=== PATIENT | female | born 1990 | race Two or more races ===

== ENCOUNTER 2017-07-07 14:04 | Emergency (ER) | payer BC ==
[2017-07-07 15:49] LABS: APPEARANCE,URINE CLEAR; BILIRUBIN,URINE NEGATIVE (NEGATIVE); COLOR,URINE YELLOW; GLUCOSE, URINE NEGATIVE (NEGATIVE); KETONES,URINE NEGATIVE (NEGATIVE); LEUKOCYTE ESTERASE,URINE NEGATIVE (NEGATIVE); NITRITE,URINE NEGATIVE (NEGATIVE); PROTEIN,URINE NEGATIVE (NEGATIVE); URINE SPECIFIC GRAVITY 1.025; UROBILINOGEN,URINE NEGATIVE mg/dL (<2.0)
--- NOTE | 2017-07-07 16:18 | ER Document Report ---
ED General - General Chief Complaint: Breathing Difficulty Stated Complaint: DIFFICULTY BREATHING Time Seen by Provider: 07/07/17 15:20 Mode of Arrival: Ambulatory Information source: Patient Notes: Patient presents with several different complaints. She states she has had some shortness of breath and some tightness in her chest. He states currently the tightness in her chest is gone. She also states that she has had some throat pain and feels like her tonsils are swollen. She also states she has had some upper abdominal pain. These pains have been intermittent. They have been mild to moderate. Nothing that made it better or worse. Did not radiate. No vomiting or diarrhea. No known fevers. TRAVEL OUTSIDE OF THE [place] IN LAST 30 DAYS: No - Related Data Allergies/Adverse Reactions: dog dander Allergy (Verified 07/07/17 15:11) Penicillins Allergy (Verified 07/07/17 15:11) Past Medical History - General Information source: Patient - Social History Smoking Status: Never Smoker Chew tobacco use (# tins/day): No Frequency of alcohol use: None Drug Abuse: None Family History: Reviewed & Not Pertinent Patient has suicidal ideation: No Patient has homicidal ideation: No Pulmonary Medical History: Reports: Hx Asthma Renal/ Medical History: Denies: Hx Peritoneal Dialysis Past Surgical History: Reports: Hx Tubal Ligation Review of Systems - Review of Systems Constitutional: Chills, Malaise EENT: Nose congestion, Nose discharge Cardiovascular: denies: Chest pain, Palpitations Gastrointestinal: denies: Diarrhea, Vomiting -: Yes All other systems reviewed and negative Physical Exam - Vital signs Vitals: Temp Pulse Resp BP Pulse Ox 98.5 F 86 17 108/61 98 07/07/17 14:20 07/07/17 14:20 07/07/17 14:20 07/07/17 14:20 07/07/17 14:20 Interpretation: Normal - General General appearance: Appears well, Alert - HEENT Head: Normocephalic, Atraumatic Eyes: Normal Pupils: PERRL - Respiratory Respiratory status: No respiratory distress Chest status: Nontender Breath sounds: Normal Chest palpation: Normal - Cardiovascular Rhythm: Regular Heart sounds: Normal auscultation Murmur: No - Abdominal Inspection: Normal Distension: No distension Bowel sounds: Normal Tenderness: Nontender Organomegaly: No organomegaly - Back Back: Normal, Nontender - Extremities General upper extremity: Normal inspection, Nontender, Normal color, Normal ROM , Normal temperature General lower extremity: Normal inspection, Nontender, Normal color, Normal ROM , Normal temperature, Normal weight bearing. No: Yoshi's sign - Neurological Neuro grossly intact: Yes Cognition: Normal Orientation: AAOx4 [place] Coma Scale Eye Opening: Spontaneous Wilder Coma Scale Verbal: Oriented [place] Coma Scale Motor: Obeys Commands [place] Coma Scale Total: 15 Speech: Normal Motor strength normal: LUE, RUE, LLE, RLE Sensory: Normal - Psychological Associated symptoms: Normal affect, Normal mood - Skin Skin Temperature: Warm Skin Moisture: Dry Skin Color: Normal Course - Vital Signs Vital signs: Temp Pulse Resp BP Pulse Ox 98.5 F 86 17 108/61 98 07/07/17 14:20 07/07/17 14:20 07/07/17 14:20 07/07/17 14:20 07/07/17 14:20 Discharge - Discharge Clinical Impression: Tonsillitis Condition: Stable Disposition: HOME, SELF-CARE Instructions: Tonsillitis ([facility]) Prescriptions: Cefdinir 300 mg PO BID 7 Days #14 capsule Phenylephrine HCl/Cod/Prometh [Phenergan Vc-Codeine Syrup] 5 ml PO Q6 PRN 5 Days syrup PRN Reason:
[2017-07-07 16:28] VITALS: BP 116/68
[2017-07-07] MEDS ORDERED: ALBUTEROL SULFATE HFA (90 MCG/PUFF) 8 GM MDI (1 MDI/ER DISP) IH SCH (16:30)
== END 2017-07-07 16:28 | disposition home or self-care (01) ==
LOC: ER 14:04
DX: J03.90 Acute tonsillitis, unspecified (principal); J45.909 Unspecified asthma, uncomplicated; R06.02 Shortness of breath; R10.10 Upper abdominal pain, unspecified; R68.83 Chills (without fever); R09.81 Nasal congestion; R53.81 Other malaise; Z91.048 Other nonmedicinal substance allergy status; Z88.0 Allergy status to penicillin
CPT/HCPCS: 99284; 81025; 81001; J3490

== ENCOUNTER 2017-07-28 12:11 | Emergency (ER) | payer BC ==
[2017-07-28] MEDS ORDERED: PREDNISONE 20 MG TABLET PO ONE (13:19)
[2017-07-28] MEDS ORDERED: ALBUTEROL SULFATE 0.083% NEB 2.5 MG/3 ML AMPUL NEB ONE (13:19)
[2017-07-28] MEDS ORDERED: IBUPROFEN 600 MG TABLET PO ONE (13:20)
--- NOTE | 2017-07-28 14:23 | ER Document Report ---
ED General - General Chief Complaint: Asthma Exacerbation Stated Complaint: DIFFICULTY BREATHING, CHEST PAIN Time Seen by Provider: 07/28/17 13:19 Notes: Patient presents stating that she felt short of breath. She states this is because she stayed in a hotel with dogs. She states she does have a history of asthma. She states she currently has no medications. The shortness of breath is worse with exertion and better with rest. It is mild to moderate. It is constant. She states she is not going to go back to this hotel. She is also had a dry cough. No fever TRAVEL OUTSIDE OF THE [place] IN LAST 30 DAYS: No - Related Data Allergies/Adverse Reactions: dog dander Allergy (Verified 07/28/17 12:13) Penicillins Allergy (Verified 07/28/17 12:13) Past Medical History - General Information source: Patient - Social History Smoking Status: Never Smoker Frequency of alcohol use: None Drug Abuse: None Family History: Reviewed & Not Pertinent Patient has suicidal ideation: No Patient has homicidal ideation: No Pulmonary Medical History: Reports: Hx Asthma Renal/ Medical History: Denies: Hx Peritoneal Dialysis Past Surgical History: Reports: Hx Tubal Ligation Review of Systems - Review of Systems Constitutional: denies: Chills, Fever, Recent illness Cardiovascular: denies: Chest pain, Palpitations Respiratory: Cough, Short of breath, Wheezing Gastrointestinal: denies: Abdominal pain, Diarrhea, Nausea Physical Exam - Vital signs Vitals: Temp Pulse Resp BP Pulse Ox 97.8 F 92 16 114/69 96 07/28/17 12:38 07/28/17 12:38 07/28/17 12:38 07/28/17 12:38 07/28/17 12:38 Interpretation: Normal - General General appearance: Appears well, Alert - HEENT Head: Normocephalic, Atraumatic Eyes: Normal Pupils: PERRL - Respiratory Respiratory status: No respiratory distress Chest status: Nontender Breath sounds: Wheezing Chest palpation: Normal - Cardiovascular Rhythm: Regular Heart sounds: Normal auscultation Murmur: No - Abdominal Inspection: Normal Distension: No distension Bowel sounds: Normal Tenderness: Nontender Organomegaly: No organomegaly - Back Back: Normal, Nontender - Extremities General upper extremity: Normal inspection, Nontender, Normal color, Normal ROM , Normal temperature General lower extremity: Normal inspection, Nontender, Normal color, Normal ROM , Normal temperature, Normal weight bearing. No: Yoshi's sign - Neurological Neuro grossly intact: Yes Cognition: Normal Orientation: AAOx4 [place] Coma Scale Eye Opening: Spontaneous [place] Coma Scale Verbal: Oriented [place] Coma Scale Motor: Obeys Commands [place] Coma Scale Total: 15 Speech: Normal Motor strength normal: LUE, RUE, LLE, RLE Sensory: Normal - Psychological Associated symptoms: Normal affect, Normal mood - Skin Skin Temperature: Warm Skin Moisture: Dry Skin Color: Normal Course - Re-evaluation Re-evalutation: 07/28/17 14:21 Patient states after breathing treatment and prednisone that she feels significantly better. - Vital Signs Vital signs: Temp Pulse Resp BP Pulse Ox 97.8 F 92 16 114/69 96 07/28/17 12:38 07/28/17 12:38 07/28/17 12:38 07/28/17 12:38 07/28/17 12:38 Discharge - Discharge Clinical Impression: Moderate intermittent asthma with acute exacerbation Condition: Stable Disposition: HOME, SELF-CARE Instructions: Asthma ([facility]), Inhaled Bronchodilators ([facility]) Additional Instructions: Please use her medications as instructed. Prescriptions: Albuterol Sulfate [Ventolin Hfa] 1 - 2 puff IH Q4 PRN #1 [id number].[id number] PRN Reason: Prednisone [Deltasone 20 mg Tablet] 3 tab PO DAILY 5 Days #15 tablet Forms: Return to Work
[2017-07-28 14:32] VITALS: BP 122/72
[2017-07-28] MEDS ORDERED: ALBUTEROL SULFATE HFA (90 MCG/PUFF) 8 GM MDI (1 MDI/ER DISP) IH ONE (14:32)
== END 2017-07-28 14:38 | disposition home or self-care (01) ==
LOC: ER 12:11
DX: J45.21 Mild intermittent asthma with (acute) exacerbation (principal); R06.02 Shortness of breath; R07.9 Chest pain, unspecified; R05 Cough
CPT/HCPCS: 94640; 99284; J7512; J3490

== ENCOUNTER 2017-09-04 07:57 | Emergency (ER) | payer SELFPAY ==
[2017-09-04] MEDS ORDERED: ACETAMINOPHEN WITH CODEINE 120-12 MG/5 ML UDCUP PO ONE (08:27)
[2017-09-04] MEDS ORDERED: IPRATROPIUM/ALBUTEROL 0.5-2.5 MG/3 ML AMPUL NEB ONE (08:27)
[2017-09-04] MEDS ORDERED: PREDNISONE 20 MG TABLET PO ONE (08:36)
--- NOTE | 2017-09-04 09:09 | RADIOLOGY REPORT (SQ) ---
EXAM DESCRIPTION: CHEST 2 VIEWS COMPLETED DATE/TIME: 09/04/2017 8:59 am REASON FOR STUDY: cough, left cp worse with cough, asthma COMPARISON: 12/04/2015 EXAM PARAMETERS: NUMBER OF VIEWS: two views TECHNIQUE: Digital Frontal and Lateral radiographic views of the chest acquired. RADIATION DOSE: NA LIMITATIONS: none FINDINGS: LUNGS AND PLEURA: No opacities, masses or pneumothorax. No pleural effusion. MEDIASTINUM AND HILAR STRUCTURES: No masses or contour abnormalities. HEART AND VASCULAR STRUCTURES: Heart normal size. No evidence for failure. BONES: No acute findings. HARDWARE: None in the chest. OTHER: No other significant finding. IMPRESSION: NO ACUTE RADIOGRAPHIC FINDING IN THE CHEST. TECHNICAL DOCUMENTATION: JOB ID: [id number] [employer] [facility]- All Rights Reserved Reading location - IP/workstation name: [email or web address]
--- NOTE | 2017-09-04 09:20 | ER Document Report ---
ED Respiratory Problem - General Chief Complaint: Shortness Of Breath Stated Complaint: SHORTNESS OF BREATH Time Seen by Provider: 09/04/17 08:27 Mode of Arrival: Ambulatory Information source: Patient Notes: Patient is a 27-year-old female with asthma who presents to the ER today for difficulty breathing times about 3 days. Patient ran out of her inhaler 2 days ago. Patient denies any fevers or chills, states that she has been coughing, productive cough, states that over the past day it became painful on the left side of her chest and back with coughing and deep breathing. Patient has had chest tightness and wheezing. TRAVEL OUTSIDE OF THE [place] IN LAST 30 DAYS: No - Related Data Allergies/Adverse Reactions: dog dander Allergy (Verified 07/28/17 12:13) Penicillins Allergy (Verified 07/28/17 12:13) Past Medical History - General Information source: Patient - Social History Smoking Status: Never Smoker Frequency of alcohol use: None Drug Abuse: None Family History: Reviewed & Not Pertinent Patient has suicidal ideation: No Patient has homicidal ideation: No Pulmonary Medical History: Reports: Hx Asthma Renal/ Medical History: Denies: Hx Peritoneal Dialysis Past Surgical History: Reports: Hx Tubal Ligation Review of Systems - Review of Systems Constitutional: No symptoms reported. denies: Chills, Fever EENT: See HPI Cardiovascular: No symptoms reported Respiratory: See HPI Gastrointestinal: No symptoms reported Genitourinary: No symptoms reported Female Genitourinary: No symptoms reported Musculoskeletal: No symptoms reported Skin: No symptoms reported Hematologic/Lymphatic: No symptoms reported Neurological/Psychological: No symptoms reported Physical Exam - Vital signs Vitals: Temp Pulse Resp BP Pulse Ox 97.5 F 91 18 107/61 95 09/04/17 08:03 09/04/17 08:03 09/04/17 08:03 09/04/17 08:03 09/04/17 08:03 - Notes Notes: PHYSICAL EXAMINATION: GENERAL: Mildly ill-appearing, but in no acute distress. HEAD: Atraumatic, normocephalic. EYES: Pupils equal round and reactive to light, extraocular movements intact, sclera anicteric, conjunctiva are normal. ENT: ear canals without erythema or foreign body, TMs pearly solis with good bony landmarks, nares with mucoid discharge , oropharynx erythematous without enlarged tonsils without exudates. Moist mucous membranes. maxillary and frontal sinuses tender to palpation NECK: Normal range of motion, supple without lymphadenopathy LUNGS: Cough, wheezing bilateral lower lung rubin, no rales or rhonchi. HEART: Regular rate and rhythm without murmurs EXTREMITIES: Normal range of motion, no pitting edema. No cyanosis. NEUROLOGICAL: Cranial nerves grossly intact. Normal sensory/motor exams. PSYCH: Normal mood, normal affect. SKIN: Warm, Dry, normal turgor, no rashes or lesions noted Course - Re-evaluation Re-evalutation: 09/04/17 09:15 Patient feels better after breathing treatment here, prednisone given. Patient also given cough medication. Chest x-ray negative for any acute pathology. - Vital Signs Vital signs: Temp Pulse Resp BP Pulse Ox 97.5 F 91 18 107/61 95 09/04/17 08:03 09/04/17 08:03 09/04/17 08:03 09/04/17 08:03 09/04/17 08:03 Discharge - Discharge Clinical Impression: Asthma Qualifiers: Asthma severity: unspecified severity Asthma persistence: unspecified Asthma complication type: with acute exacerbation Qualified Code(s): J45.901 - Unspecified asthma with (acute) exacerbation Sinusitis Qualifiers: Sinusitis location: maxillary Chronicity: acute Recurrence: non-recurrent Qualified Code(s): J01.00 - Acute maxillary sinusitis, unspecified Condition: Stable Disposition: HOME, SELF-CARE Instructions: Asthma ([facility]), Sinusitis ([facility]) Additional Instructions: Return immediately for any new or worsening symptoms. Follow up with primary care provider, call tomorrow to make followup appointment. Prescriptions: Hydrocodone Bit/Homatropine [Hycodan Syrup 5-1.5 mg/5 ml Ud Cup] 5 ml PO Q4HP PRN #120 ml PRN Reason: Albuterol Sulfate [Proair HFA Inhalation Aerosol 8.5 gm MDI] 2 puff IH Q4H PRN # 1 mdi PRN Reason: Azithromycin [Zithromax 250 mg Tablet] 250 mg PO ASDIR PRN #6 tablet PRN Reason: Prednisone [Deltasone 20 mg Tablet] 3 tab PO DAILY 5 Days tablet Forms: Return to Work
[2017-09-04 09:46] VITALS: BP 116/60
== END 2017-09-04 09:47 | disposition home or self-care (01) ==
LOC: ER 07:57
DX: J45.901 Unspecified asthma with (acute) exacerbation (principal); J01.00 Acute maxillary sinusitis, unspecified; Z88.0 Allergy status to penicillin; Z98.51 Tubal ligation status
CPT/HCPCS: 94640; 99284; 71046; J3490; J7512; J7620

== ENCOUNTER 2017-10-31 15:41 | Emergency (ER) | payer MEDICAID ==
[2017-10-31 15:46] VITALS: BP 109/68
--- NOTE | 2017-10-31 15:57 | ER Document Report ---
HPI - HPI Patient complains to provider of: Right lower back pain Onset: Other - 2 days Onset/Duration: Gradual Quality of pain: Achy, Pressure Pain Level: 5 Context: 27-year-old female complaining of right flank pain and right lower rib pain that radiates around to the front for 2 days. Is worse with movement. No radiculopathy. No nausea vomiting or diarrhea. No fever or chills. No shortness of breath or cough. No recent illness. No vaginal discharge. No dysuria. Associated Symptoms: None Exacerbated by: Movement Relieved by: Denies Similar symptoms previously: No Recently seen / treated by doctor: No - ROS ROS below otherwise negative: Yes Systems Reviewed and Negative: Yes All other systems reviewed and negative - REPRODUCTIVE Reproductive: DENIES: : Past Medical History - General Information source: Patient - Social History Smoking Status: Unknown if Ever Smoked Frequency of alcohol use: None Drug Abuse: None Lives with: Family Family History: Reviewed & Not Pertinent Pulmonary Medical History: Reports: Hx Asthma Renal/ Medical History: Denies: Hx Peritoneal Dialysis Past Surgical History: Reports: Hx Tubal Ligation Vertical Provider Document - CONSTITUTIONAL Agree With Documented VS: Yes Exam Limitations: No Limitations - INFECTION CONTROL TRAVEL OUTSIDE OF THE [place] IN LAST 30 DAYS: No - HEENT HEENT: Normocephalic - NECK Neck: Supple - RESPIRATORY Respiratory: Breath Sounds Normal, No Respiratory Distress - CARDIOVASCULAR Cardiovascular: Regular Rate, Regular Rhythm - GI/ABDOMEN Gastrointestinal: Abdomen Soft, Abdomen Non-Tender, No Organomegaly - BACK Back: Normal Inspection. negative: CVA Tenderness-Right Notes: tender right lumbar paraspinal muscles to the SI joint - MUSCULOSKELETAL/EXTREMETIES Musculoskeletal/Extremeties: MAEW, Tender - She is also tender in the right lower lateral ribs - NEURO Level of Consciousness: Awake Deep Tendon Reflexes: 2+ - Bilateral ankle and patellar - DERM Integumentary: No Rash Course - Re-evaluation Re-evalutation: 10/31/17 16:52 Urinalysis is negative I will treat her for musculoskeletal back pain - Vital Signs Vital signs: Temp Pulse Resp BP Pulse Ox 97.6 F 81 16 109/68 97 10/31/17 15:44 10/31/17 15:44 10/31/17 15:44 10/31/17 15:44 10/31/17 15:44 Discharge - Discharge Clinical Impression: Flank pain Low back pain Qualifiers: Chronicity: acute Back pain laterality: right Sciatica presence: without sciatica Qualified Code(s): M54.5 - Low back pain Condition: Good Disposition: HOME, SELF-CARE Instructions: Acetaminophen, Ibuprofen (General) ([facility]), Muscle Relaxers ([facility]), Muscle Strain ([facility]), Low Back Pain ([facility]) Additional Instructions: Warm compress Muscle relaxers can be taken up to 3 times a day Motrin 3 times a day Tylenol up to 4000 mg per day See your doctor for follow-up if it persists Prescriptions: Ibuprofen [Motrin 800 mg Tablet] 800 mg PO Q8HP PRN #30 tablet PRN Reason: Cyclobenzaprine HCl [Flexeril 10 Mg Tablet] 10 mg PO TIDP PRN #20 tablet PRN Reason:
[2017-10-31] MEDS ORDERED: ACETAMINOPHEN 325 MG TABLET PO ONE (16:13)
[2017-10-31] MEDS ORDERED: IBUPROFEN 800 MG TABLET PO ONE (16:13)
[2017-10-31 16:47] LABS: APPEARANCE,URINE CLOUDY; BILIRUBIN,URINE NEGATIVE (NEGATIVE); COLOR,URINE YELLOW; GLUCOSE, URINE NEGATIVE (NEGATIVE); KETONES,URINE NEGATIVE (NEGATIVE); LEUKOCYTE ESTERASE,URINE NEGATIVE (NEGATIVE); NITRITE,URINE NEGATIVE (NEGATIVE); PROTEIN,URINE NEGATIVE (NEGATIVE); URINE SPECIFIC GRAVITY 1.021; UROBILINOGEN,URINE NEGATIVE mg/dL (<2.0)
== END 2017-10-31 17:15 | disposition home or self-care (01) ==
LOC: ER 15:41
DX: M54.5 Low back pain (principal); R10.9 Unspecified abdominal pain; Z98.51 Tubal ligation status
CPT/HCPCS: 99283; 87086; 81001; J3490 ×2

== ENCOUNTER 2017-11-03 09:55 | Emergency (ER) | payer MEDICAID ==
--- NOTE | 2017-11-03 10:25 | ER Document Report ---
ED Medical Screen (RME) - General Chief Complaint: Abdominal Pain Stated Complaint: RIB PAIN Time Seen by Provider: 11/03/17 10:21 Mode of Arrival: Ambulatory Information source: Patient Notes: 27-year-old female presents with complaints of continued right upper quadrant right flank pain. Patient denies any fevers or chills admits to nausea with diarrhea. I have greeted and performed a rapid initial assessment of this patient. A comprehensive ED assessment and evaluation of the patient, analysis of test results and completion of the medical decision making process will be conducted by additional ED providers. PHYSICAL EXAMINATION: GENERAL: Well-appearing, well-nourished and in no acute distress. HEAD: Atraumatic, normocephalic. EYES: Pupils equal round extraocular movements intact, conjunctiva are normal. ENT: Nares patent NECK: Normal range of motion LUNGS: No respiratory distress Musculoskeletal: Normal range of motion NEUROLOGICAL: Normal speech, normal gait. PSYCH: Normal mood, normal affect. SKIN: Warm, Dry, normal turgor, no rashes or lesions noted. TRAVEL OUTSIDE OF THE [place] IN LAST 30 DAYS: No - Related Data Allergies/Adverse Reactions: dog dander Allergy (Verified 10/31/17 15:42) Penicillins Allergy (Verified 10/31/17 15:42) Past Medical History Pulmonary Medical History: Reports: Hx Asthma Renal/ Medical History: Denies: Hx Peritoneal Dialysis Past Surgical History: Reports: Hx Tubal Ligation Physical Exam - Vital signs Vitals: Temp Pulse Resp BP Pulse Ox 98.0 F 85 18 114/67 98 11/03/17 09:59 11/03/17 09:59 11/03/17 09:59 11/03/17 09:59 11/03/17 09:59 Course - Vital Signs Vital signs: Temp Pulse Resp BP Pulse Ox 98.0 F 85 18 114/67 98 11/03/17 09:59 11/03/17 09:59 11/03/17 09:59 11/03/17 09:59 11/03/17 09:59
[2017-11-03] MEDS ORDERED: ONDANSETRON 4 MG TAB.RAPDIS PO ONE (11:02)
[2017-11-03] MEDS ORDERED: OXYCODONE-ACETAMINOPHEN 5-325 MG TABLET PO ONE (11:02)
--- NOTE | 2017-11-03 11:03 | ER Document Report ---
ED GI/ - General Chief Complaint: Abdominal Pain Stated Complaint: RIB PAIN Time Seen by Provider: 11/03/17 10:21 Mode of Arrival: Ambulatory Information source: Patient Notes: Patient presents complaining of right upper quadrant pain and right flank pain that wraps around her back. Patient states pain started 5 days ago. Patient states that she was here recently for this complaint. Patient reports nausea and diarrhea 3 episodes. Patient denies any vomiting, urinary symptoms, cough or congestion. Patient does complain of a rash that started to show up over the past few days. TRAVEL OUTSIDE OF THE [place] IN LAST 30 DAYS: No - HPI Patient complains to provider of: Abdominal pain, Diarrhea, Flank pain. No: Vomiting Onset: Other - 5 days Timing/Duration: Persistent Quality of pain: Achy Pain Level: 4 Location: RUQ, Right flank Vaginal bleeding (Compared to normal period): None Associated symptoms: Diarrhea, Nausea. denies: Dysuria, Fever, Urinary hesitancy, Urinary frequency, Urinary retention, Urinary urgency, Vaginal discharge, Vomiting Exacerbated by: Denies Relieved by: Denies Similar symptoms previously: No Recently seen / treated by doctor: Yes - Related Data Allergies/Adverse Reactions: dog dander Allergy (Verified 10/31/17 15:42) Penicillins Allergy (Verified 10/31/17 15:42) Past Medical History - General Information source: Patient - Social History Smoking Status: Never Smoker Chew tobacco use (# tins/day): No Frequency of alcohol use: Occasional Drug Abuse: None Occupation: None Family History: Reviewed & Not Pertinent Patient has suicidal ideation: No Patient has homicidal ideation: No Pulmonary Medical History: Reports: Hx Asthma Renal/ Medical History: Denies: Hx Peritoneal Dialysis Past Surgical History: Reports: Hx Tubal Ligation Review of Systems - Review of Systems Constitutional: No symptoms reported. denies: Fever EENT: No symptoms reported Cardiovascular: No symptoms reported. denies: Chest pain Respiratory: No symptoms reported. denies: Cough, Short of breath Gastrointestinal: Abdominal pain, Diarrhea, Nausea. denies: Vomiting Genitourinary: Flank pain. denies: Dysuria Female Genitourinary: No symptoms reported Musculoskeletal: Back pain Skin: Rash Hematologic/Lymphatic: No symptoms reported Neurological/Psychological: No symptoms reported. denies: Headaches Physical Exam - Vital signs Vitals: Temp Pulse Resp BP Pulse Ox 98.0 F 85 18 114/67 98 11/03/17 09:59 11/03/17 09:59 11/03/17 09:59 11/03/17 09:59 11/03/17 09:59 - General General appearance: Appears well, Alert In distress: None - HEENT Head: Normocephalic, Atraumatic Eyes: Normal Conjunctiva: Normal Sinus: Normal Nasal: Normal Mouth/Lips: Normal Neck: Normal, Supple. No: Lymphadenopathy - Respiratory Respiratory status: No respiratory distress Chest status: Nontender Breath sounds: Normal. No: Rales, Rhonchi, Stridor, Wheezing Chest palpation: Normal - Cardiovascular Rhythm: Regular Heart sounds: S1 appreciated, S2 appreciated Murmur: No - Abdominal Inspection: Obese Distension: No distension Bowel sounds: Normal Tenderness: Tender - RUQ - Back Back: Tender - right lat side pain. No: CVA tenderness - Extremities General upper extremity: Normal inspection, Normal ROM General lower extremity: Normal inspection, Normal ROM - Neurological Neuro grossly intact: Yes Cognition: Normal [place] Coma Scale Eye Opening: Spontaneous [place] Coma Scale Verbal: Oriented [place] Coma Scale Motor: Obeys Commands [place] Coma Scale Total: 15 - Psychological Associated symptoms: Normal affect, Normal mood - Skin Skin Temperature: Warm Skin Moisture: Dry Skin Color: Normal Course - Re-evaluation Re-evalutation: 11/03/17 12:41 On reexam patient continues with right side and right flank pain. Patient skin exposed, patient with scattered erythematous maculopapular lesions worrisome for shingles. Patient without any findings concerning for cholecystitis. No concern for UTI, Nicola or obstructive uropathy. Patient nontoxic in appearance. Will treat for likely shingles outbreak at this time. - Vital Signs Vital signs: Temp Pulse Resp BP Pulse Ox 97.8 F 80 16 110/66 100 11/03/17 12:56 11/03/17 12:56 11/03/17 12:56 11/03/17 12:56 11/03/17 12:56 - Laboratory Result Diagrams: 11/03/17 10:45 11/03/17 10:45 Laboratory results interpreted by me: 11/03/17 11/03/17 10:45 10:45 MCH 25.9 L Total Protein 6.2 L Labs- Entire Visit 11/03/17 11/03/17 11/03/17 10:45 10:45 10:45 WBC 7.6 RBC 5.06 Hgb 13.1 Hct 40.3 MCV 80 MCH 25.9 L MCHC 32.5 RDW 13.3 Plt Count 315 Seg Neutrophils % 55.8 Lymphocytes % 35.9 Monocytes % 6.7 Eosinophils % 1.2 Basophils % 0.4 Absolute Neutrophils 4.2 Absolute Lymphocytes 2.7 Absolute Monocytes 0.5 Absolute Eosinophils 0.1 Absolute Basophils 0.0 Sodium 142.8 Potassium 4.2 Chloride 105 Carbon Dioxide 29 Anion Gap 9 BUN 14 Creatinine 0.61 Est GFR ( Amer) > 60 Est GFR (Non-Af Amer) > 60 Glucose 98 Calcium 9.1 Total Bilirubin 0.3 Direct Bilirubin 0.3 Neonat Total Bilirubin Not Reportable Neonat Direct Bilirubin Not Reportable Neonat Indirect Bili Not Reportable AST 14 ALT 21 Alkaline Phosphatase 51 Total Protein 6.2 L Albumin 3.6 Lipase 107.6 Urine Color YELLOW Urine Appearance CLEAR Urine pH 8.0 Ur Specific West 1.016 Urine Protein NEGATIVE Urine Glucose (UA) NEGATIVE Urine Ketones NEGATIVE Urine Blood NEGATIVE Urine Nitrite NEGATIVE Urine Bilirubin NEGATIVE Urine Urobilinogen NEGATIVE Ur Leukocyte Esterase NEGATIVE Urine WBC (Auto) 1 Urine RBC (Auto) 2 Squamous Epi Cells Auto 4 Urine Mucus (Auto) RARE Urine Ascorbic Acid NEGATIVE Urine HCG, Qual NEGATIVE - Diagnostic Test Radiology reviewed: Reports reviewed Discharge - Discharge Clinical Impression: Right sided abdominal pain, Flank pain Herpes zoster Qualifiers: Herpes zoster complications: without complications Qualified Code(s): B02.9 - Zoster without complications Diarrhea Qualifiers: Diarrhea type: unspecified type Qualified Code(s): R19.7 - Diarrhea, unspecified Condition: Stable Disposition: HOME, SELF-CARE Instructions: Abdominal Pain ([facility]), Diarrhea, Nonspecific ([facility]), Oral Narcotic Medication ([facility]), Shingles ([facility]) Additional Instructions: Return immediately for any new or worsening symptoms Followup with your primary care provider, call tomorrow to make a followup appointment Prescriptions: Ondansetron HCl [Zofran 4 mg Tablet] 1 - 2 tab PO Q6 PRN #15 tablet PRN Reason: Oxycodone HCl/Acetaminophen [Percocet 5-325 mg Tablet] 1 tab PO ASDIR PRN #15 tablet PRN Reason: Valacyclovir HCl [Valacyclovir] 1,000 mg PO TID #21 tablet Referrals: [facility] [Provider Group] - Follow up as needed [facility] [Provider Group] - Follow up as needed
[2017-11-03 11:07] LABS: ABSOLUTE EOSINOPHILS # (AUTO) 0.1 10^3/uL (0.0-0.6); ABSOLUTE LYMPHOCYTES (AUTO) 2.7 10^3/uL (0.5-4.7); ABSOLUTE MONOCYTES (AUTO) 0.5 10^3/uL (0.1-1.4); ABSOLUTE NEUT (AUTO) 4.2 10^3/uL (1.7-8.2); BASOPHILS % (AUTO) 0.4 % (0-2); EOSINOPHILS % (AUTO) 1.2 % (0-6); HEMATOCRIT 40.3 % (36.0-47.0); HEMOGLOBIN 13.1 g/dL (12.0-15.5); LYMPHOCYTES % (AUTO) 35.9 % (13-45); MEAN CORPUSCULAR HEMOGLOBIN 25.9 pg (27.0-33.4); MEAN CORPUSCULAR HGB CONC 32.5 g/dL (32.0-36.0); MEAN CORPUSCULAR VOLUME 80 fl (80-97); MONOCYTES % (AUTO) 6.7 % (3-13); PLATELET COUNT 315 10^3/uL (150-450); RED BLOOD COUNT 5.06 10^6/uL (3.72-5.28); RED CELL DISTRIBUTION WIDTH 13.3 % (11.5-14.0); SEGMENTED NEUTROPHILS % (AUTO) 55.8 % (42-78); TOTAL CELLS COUNTED % (AUTO) 100 %; WHITE BLOOD COUNT 7.6 10^3/uL (4.0-10.5)
[2017-11-03 11:12] LABS: APPEARANCE,URINE CLEAR; BILIRUBIN,URINE NEGATIVE (NEGATIVE); COLOR,URINE YELLOW; GLUCOSE, URINE NEGATIVE (NEGATIVE); KETONES,URINE NEGATIVE (NEGATIVE); LEUKOCYTE ESTERASE,URINE NEGATIVE (NEGATIVE); NITRITE,URINE NEGATIVE (NEGATIVE); PROTEIN,URINE NEGATIVE (NEGATIVE); URINE SPECIFIC GRAVITY 1.016; UROBILINOGEN,URINE NEGATIVE mg/dL (<2.0)
[2017-11-03 11:25] LABS: ALANINE AMINOTRANSFERASE 21 U/L (9-52); ALBUMIN 3.6 g/dL (3.5-5.0); ALKALINE PHOSPHATASE 51 U/L (38-126); ANION GAP 9 (5-19); ASPARTATE AMINO TRANSFERASE 14 U/L (14-36); BILIRUBIN,DIRECT 0.3 mg/dL (0.0-0.4); BILIRUBIN,TOTAL 0.3 mg/dL (0.2-1.3); BLOOD UREA NITROGEN 14 mg/dL (7-20); CALCIUM 9.1 mg/dL (8.4-10.2); CARBON DIOXIDE 29 mmol/L (22-30); CHLORIDE 105 mmol/L (98-107); GLUCOSE 98 mg/dL (75-110); LIPASE 107.6 U/L (23-300); POTASSIUM 4.2 mmol/L (3.6-5.0); SODIUM 142.8 mmol/L (137-145); TOTAL PROTEIN 6.2 g/dL (6.3-8.2)
--- NOTE | 2017-11-03 12:01 | RADIOLOGY REPORT (SQ) ---
EXAM DESCRIPTION: U/S ABDOMEN LIMITED W/O DOP COMPLETED DATE/TIME: 11/03/2017 11:52 am REASON FOR STUDY: RUQ pain COMPARISON: None. TECHNIQUE: Dynamic and static grayscale images acquired of the abdomen and recorded on PACS. Additio nal selected color Doppler and spectral images recorded. LIMITATIONS: None. FINDINGS: PANCREAS: The tail of the pancreas is obscured by overlying bowel gas. Visualized pancrea tic duct normal caliber. LIVER: The liver measures 17.4 cm, normal size. Echotexture normal. LIVER VASCULATURE: Normal directional flow of the main portal vein and hepatic veins. GALLBLADDER: No stones. Gallbladder wall measures 2.0 mm, normal wall thickness. No pericholecystic fluid. ULTRASOUND-DETECTED PEREIRA'S SIGN: Negative. INTRAHEPATIC DUCTS AND COMMON DUCT: CBD measures 2.0 mm in diameter, normal. The intrahepatic ducts normal caliber. No filling defects. INFERIOR VENA CAVA: Normal flow. AORTA: No aneurysm. RIGHT KIDNEY: The right kidney measures 12.2 cm, normal size. Normal echogenicity. No solid or susp icious masses. No hydronephrosis. No calcifications. PERITONEAL AND RIGHT PLEURAL SPACE: No ascites or effusions. OTHER: No other significant findings. IMPRESSION: 1 The tail of the pancreas is obscured by overlying bowel gas. 2 Examination is otherwise unremarkable sonographically. TECHNICAL DOCUMENTATION: JOB ID: [id number] [employer]- All Rights Reserved Reading location - IP/workstation name: [email or web address]
[2017-11-03] MEDS ORDERED: LIDOCAINE 5% (700 MG) TRANSDERMAL ADH..PATCH TP ONE (12:41)
[2017-11-03] MEDS ORDERED: VALACYCLOVIR HCL 500 MG TABLET PO ONE (12:42)
[2017-11-03 12:57] VITALS: BP 110/66
== END 2017-11-03 12:57 | disposition home or self-care (01) ==
LOC: ER 09:55
DX: B02.9 Zoster without complications (principal); R10.11 Right upper quadrant pain; R10.9 Unspecified abdominal pain; R11.0 Nausea; R19.7 Diarrhea, unspecified; M54.9 Dorsalgia, unspecified; J45.909 Unspecified asthma, uncomplicated; Z88.0 Allergy status to penicillin; Z91.048 Other nonmedicinal substance allergy status
CPT/HCPCS: 99284; 36415; 83690; 85025; 81025; 80053; 81001; 76705; S0119; J3490 ×2

== ENCOUNTER 2017-11-07 19:18 | Emergency (ER) | payer MEDICAID ==
[2017-11-07] MEDS ORDERED: LIDOCAINE 5% (700 MG) TRANSDERMAL ADH..PATCH TP ONE ×2 (21:04→22:25)
--- NOTE | 2017-11-07 21:07 | ER Document Report ---
ED General - General Chief Complaint: Abdominal Pain Stated Complaint: RIGHT SIDE PAIN Time Seen by Provider: 11/07/17 20:00 Mode of Arrival: Ambulatory Information source: Patient Notes: 27-year-old female presents with complaints of right upper quadrant abdominal pain rating to right flank. Patient denies any fevers or chills notes that she has had blisters that are extremely painful. Patient was seen here couple times was diagnosed with having shingles TRAVEL OUTSIDE OF THE [place] IN LAST 30 DAYS: No - HPI Onset: Last week Onset/Duration: Persistent, Worse Quality of pain: Sharp Severity: Moderate Pain Level: 4 Associated symptoms: Other Exacerbated by: Denies Relieved by: Denies Similar symptoms previously: Yes Recently seen / treated by doctor: Yes - Related Data Allergies/Adverse Reactions: dog dander Allergy (Verified 10/31/17 15:42) Penicillins Allergy (Verified 10/31/17 15:42) Past Medical History - Social History Smoking Status: Never Smoker Cigarette use (# per day): No Chew tobacco use (# tins/day): No Smoking Education Provided: No Frequency of alcohol use: Rare Family History: Reviewed & Not Pertinent Patient has suicidal ideation: No Patient has homicidal ideation: No Pulmonary Medical History: Reports: Hx Asthma Renal/ Medical History: Denies: Hx Peritoneal Dialysis Past Surgical History: Reports: Hx Tubal Ligation Review of Systems - Review of Systems Notes: REVIEW OF SYSTEMS: CONSTITUTIONAL : Denies fever, chills, or sweats. Denies recent illness. EENT: Denies eye, ear, throat, or mouth pain or symptoms. Denies nasal or sinus congestion or discharge. Denies throat, tongue, or mouth swelling or difficulty swallowing. CARDIOVASCULAR: Denies chest pain. Denies palpitations or racing or irregular heart beat. Denies ankle edema. RESPIRATORY: Denies cough, cold, or chest congestion. Denies shortness of breath, difficulty breathing, or wheezing. GASTROINTESTINAL: Denies abdominal pain or distention. Denies nausea, vomiting , or diarrhea. Denies blood in vomitus, stools, or per rectum. Denies black, tarry stools. Denies constipation. GENITOURINARY: Denies difficulty urinating, painful urination, burning, frequency, blood in urine, or discharge. FEMALE GENITOURINARY: Denies vaginal bleeding, heavy or abnormal periods, irregular periods. Denies vaginal discharge or odor. MUSCULOSKELETAL: Denies back or neck pain or stiffness. Denies joint pain or swelling. SKIN: Admits to painful rash HEMATOLOGIC : Denies easy bruising or bleeding. LYMPHATIC: Denies swollen, enlarged glands. NEUROLOGICAL: Denies confusion or altered mental status. Denies passing out or loss of consciousness. Denies dizziness or lightheadedness. Denies headache. Denies weakness or paralysis or loss of use of either side. Denies problems with gait or speech. Denies sensory loss, numbness, or tingling. Denies seizures. PSYCHIATRIC: Denies anxiety or stress. Denies depression, suicidal ideation, or homicidal ideation. ALL OTHER SYSTEMS REVIEWED AND NEGATIVE. PHYSICAL EXAMINATION: GENERAL: Well-appearing, well-nourished and in no acute distress. HEAD: Atraumatic, normocephalic. EYES: Pupils equal round and reactive to light, extraocular movements intact, conjunctiva are normal. ENT: Nares patent, oropharynx clear without exudates. Moist mucous membranes. NECK: Normal range of motion, supple without lymphadenopathy LUNGS: Breath sounds clear to auscultation bilaterally and equal. No wheezes rales or rhonchi. HEART: Regular rate and rhythm without murmurs ABDOMEN: Soft, nontender, nondistended abdomen. No guarding, no rebound. No masses appreciated. Female : deferred Musculoskeletal: Normal range of motion, no pitting or edema. No cyanosis. NEUROLOGICAL: Cranial nerves grossly intact. Normal speech, normal gait. Normal sensory, motor exams PSYCH: Normal mood, normal affect. SKIN: There is a small cluster of healing blister and other raised areas and single dermatome under the right breast Dictation was performed using [employer] voice recognition software Physical Exam - Vital signs Vitals: Temp Pulse Resp BP Pulse Ox 97.6 F 89 14 118/62 97 11/07/17 19:46 11/07/17 19:46 11/07/17 19:46 11/07/17 19:46 11/07/17 19:46 Course - Re-evaluation Re-evalutation: 11/07/17 21:07 Patient presentation is most consistent with shingles however it is atypical 11/07/17 22:27 Patient's lab work was negative notes relief with gabapentin will send her home with same After performing a Medical Screening Examination, I estimate there is LOW risk for any life threatening rash. At this time the patient looks extremely well and there are no signs of systemic infection, however this may change at any time and the rash may change. I have reevaluated this patient multiple times and no significant life threatening changes are noted. The patient and I have discussed the diagnosis and risks, and we agree with discharging home with close follow-up with the understanding that symptoms and presentations can change. We also discussed returning to the Emergency Department immediately if new or worsening symptoms occur. We have discussed the symptoms which are most concerning (e.g., changing or worsening pain, fever, numbness, weakness, cool or painful digits) that necessitate immediate return. 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 If you cannot afford to follow up with your primary care physician a list of low cost clinics have been provided at the end of your discharge papers as well. Prescriptions: Gabapentin 300 mg PO Q8 #30 capsule
[2017-11-07 21:18] LABS: ABSOLUTE EOSINOPHILS # (AUTO) 0.1 10^3/uL (0.0-0.6); ABSOLUTE LYMPHOCYTES (AUTO) 3.1 10^3/uL (0.5-4.7); ABSOLUTE MONOCYTES (AUTO) 0.6 10^3/uL (0.1-1.4); ABSOLUTE NEUT (AUTO) 4.8 10^3/uL (1.7-8.2); BASOPHILS % (AUTO) 0.2 % (0-2); EOSINOPHILS % (AUTO) 1.1 % (0-6); HEMATOCRIT 41.7 % (36.0-47.0); MEAN CORPUSCULAR HEMOGLOBIN 26.7 pg (27.0-33.4); MEAN CORPUSCULAR HGB CONC 33.5 g/dL (32.0-36.0); MEAN CORPUSCULAR VOLUME 80 fl (80-97); MONOCYTES % (AUTO) 6.5 % (3-13); PLATELET COUNT 341 10^3/uL (150-450); RED BLOOD COUNT 5.23 10^6/uL (3.72-5.28); RED CELL DISTRIBUTION WIDTH 13.4 % (11.5-14.0); SEGMENTED NEUTROPHILS % (AUTO) 56.2 % (42-78); TOTAL CELLS COUNTED % (AUTO) 100 %; WHITE BLOOD COUNT 8.5 10^3/uL (4.0-10.5)
[2017-11-07 21:25] LABS: ALANINE AMINOTRANSFERASE 24 U/L (9-52); ALKALINE PHOSPHATASE 56 U/L (38-126); ANION GAP 9 (5-19); ASPARTATE AMINO TRANSFERASE 19 U/L (14-36); BILIRUBIN,DIRECT 0.3 mg/dL (0.0-0.4); BILIRUBIN,TOTAL 0.5 mg/dL (0.2-1.3); BLOOD UREA NITROGEN 14 mg/dL (7-20); CALCIUM 9.3 mg/dL (8.4-10.2); CARBON DIOXIDE 28 mmol/L (22-30); CHLORIDE 103 mmol/L (98-107); GLUCOSE 82 mg/dL (75-110); LIPASE 30.8 U/L (23-300); POTASSIUM 4.1 mmol/L (3.6-5.0); SODIUM 139.6 mmol/L (137-145); TOTAL PROTEIN 6.8 g/dL (6.3-8.2)
[2017-11-07] MEDS ORDERED: GABAPENTIN 300 MG CAPSULE PO ONE (21:32)
[2017-11-07 22:11] LABS: APPEARANCE,URINE SLIGHTLY-CLOUDY; BILIRUBIN,URINE NEGATIVE (NEGATIVE); COLOR,URINE YELLOW; GLUCOSE, URINE NEGATIVE (NEGATIVE); KETONES,URINE NEGATIVE (NEGATIVE); LEUKOCYTE ESTERASE,URINE MODERATE (NEGATIVE); NITRITE,URINE NEGATIVE (NEGATIVE); PROTEIN,URINE NEGATIVE (NEGATIVE); URINE SPECIFIC GRAVITY 1.015; UROBILINOGEN,URINE NEGATIVE mg/dL (<2.0)
[2017-11-07 22:55] VITALS: BP 111/64
== END 2017-11-07 22:54 | disposition home or self-care (01) ==
LOC: ER 19:18
DX: B02.23 Postherpetic polyneuropathy (principal); R10.11 Right upper quadrant pain; J45.909 Unspecified asthma, uncomplicated; Z88.0 Allergy status to penicillin; Z91.048 Other nonmedicinal substance allergy status
CPT/HCPCS: 99284; 36415; 83690; 85025; 80053; 81001; J3490 ×2

== ENCOUNTER 2018-02-06 11:00 | Emergency (ER) | payer MEDICAID ==
[2018-02-06 11:20] VITALS: BP 122/68
[2018-02-06] MEDS ORDERED: IPRATROPIUM/ALBUTEROL 0.5-2.5 MG/3 ML AMPUL NEB ONE (11:40)
[2018-02-06] MEDS ORDERED: DEXAMETHASONE SOD PHOS INJ 10 MG/1 ML VIAL IM ONE (11:40)
--- NOTE | 2018-02-06 11:44 | ER Document Report ---
ED Respiratory Problem - General Chief Complaint: Breathing Difficulty Stated Complaint: SHORTNESS OF BREATH Time Seen by Provider: 02/06/18 11:34 Mode of Arrival: Ambulatory Information source: Patient Notes: 27-year-old female presented to ED for complaint of difficulty breathing for 2 weeks. She states she is was complaining of mold in her house and has been using her inhaler more frequently. She states she probably 10 times before coming into the emergency room. Patient is alert and oriented respirations regular but does have a audible wheeze. Patient speaking in full sentences walks with a even steady gait. TRAVEL OUTSIDE OF THE [place] IN LAST 30 DAYS: No - HPI Patient complains to provider of: Asthma, Short of breath, Other - Wheezing Onset: Other - Off and on for 2 weeks Duration: Continuous Initiating Event: Exposure to mold, URI, Other - Patient has a history of asthma Quality of pain: Other - Tight Severity: Moderate Pain Level: 3 Context: Hx asthma Short of Breath: Mild Chest pain/discomfort: Tightness Cough: Nonproductive Sputum amount: None At home treatment: Bronchodilators, Oral steroids Associated symptoms: Congestion, Cough, PND, Runny nose, Sinus pain/pressure, Short of breath, Wheezing Similar symptoms previously: Yes Recently seen / treated by doctor: Yes - Related Data Allergies/Adverse Reactions: dog dander Allergy (Verified 02/06/18 11:02) Penicillins Allergy (Verified 02/06/18 11:02) Past Medical History - General Information source: Patient - Social History Smoking Status: Never Smoker Cigarette use (# per day): No Chew tobacco use (# tins/day): No Smoking Education Provided: No Frequency of alcohol use: Occasional Drug Abuse: None Lives with: Alone - kids Family History: Reviewed & Not Pertinent Patient has suicidal ideation: No Patient has homicidal ideation: No - Past Medical History Cardiac Medical History: Reports: None Pulmonary Medical History: Reports: Hx Asthma EENT Medical History: Reports: None Neurological Medical History: Reports: None Endocrine Medical History: Reports: None Renal/ Medical History: Reports: None Malignancy Medical History: Reports: None GI Medical History: Reports: None Musculoskeletal Medical History: Reports None Skin Medical History: Reports None Psychiatric Medical History: Reports: None Traumatic Medical History: Reports: None Infectious Medical History: Reports: None Past Surgical History: Reports: Hx Tubal Ligation - Immunizations Immunizations up to date: Yes Review of Systems - Review of Systems Constitutional: Recent illness EENT: Nose discharge, Sinus discharge Cardiovascular: No symptoms reported Respiratory: Cough, Short of breath, Wheezing Gastrointestinal: No symptoms reported Genitourinary: No symptoms reported Female Genitourinary: No symptoms reported Musculoskeletal: No symptoms reported Skin: No symptoms reported Hematologic/Lymphatic: No symptoms reported Neurological/Psychological: No symptoms reported -: Yes All other systems reviewed and negative Physical Exam - Vital signs Vitals: Temp Pulse Resp BP Pulse Ox 98.3 F 95 18 122/68 97 02/06/18 11:17 02/06/18 11:17 02/06/18 11:17 02/06/18 11:17 02/06/18 11:17 Interpretation: Normal - General General appearance: Appears well, Alert - HEENT Head: Normocephalic, Atraumatic Eyes: Normal Pupils: PERRL Sinus: Normal Nasal: Purulent discharge, Swelling Mouth/Lips: Normal Mucous membranes: Normal Pharynx: Post nasal drainage Neck: Normal - Respiratory Respiratory status: No respiratory distress Chest status: Nontender Breath sounds: Nonproductive cough, Wheezing Chest palpation: Normal - Cardiovascular Rhythm: Regular Heart sounds: Normal auscultation Murmur: No - Abdominal Inspection: Normal Distension: No distension Bowel sounds: Normal Tenderness: Nontender Organomegaly: No organomegaly - Back Back: Normal, Nontender - Extremities General upper extremity: Normal inspection, Nontender, Normal color, Normal ROM , Normal temperature General lower extremity: Normal inspection, Nontender, Normal color, Normal ROM , Normal temperature, Normal weight bearing. No: Yoshi's sign - Neurological Neuro grossly intact: Yes Cognition: Normal Orientation: AAOx4 [place] Coma Scale Eye Opening: Spontaneous [place] Coma Scale Verbal: Oriented [place] Coma Scale Motor: Obeys Commands Wilder Coma Scale Total: 15 Speech: Normal Motor strength normal: LUE, RUE, LLE, RLE Sensory: Normal - Psychological Associated symptoms: Normal affect, Normal mood - Skin Skin Temperature: Warm Skin Moisture: Dry Skin Color: Normal Course - Re-evaluation Re-evalutation: 02/06/18 11:44 Will reassess after steroids and breathing treatments. 02/06/18 17:26 Before patient was discharged she was breathing much better. She stated she felt much better and was more able to take deep breaths. Patient was discharged home with prescription for albuterol inhaler. Patient still had 3 days worth of prednisone left from her previous visit to her primary doctor. Patient was instructed to follow-up with her doctor again on Friday return to the ED for any increase in exacerbation of wheezing. Verbalize understanding and agreement with treatment plan. - Vital Signs Vital signs: Temp Pulse Resp BP Pulse Ox 98.0 F 80 18 122/68 99 02/06/18 11:49 02/06/18 11:49 02/06/18 11:49 02/06/18 11:49 02/06/18 11:49 Discharge - Discharge Clinical Impression: Asthma Qualifiers: Asthma severity: mild Asthma persistence: unspecified Asthma complication type : with acute exacerbation Qualified Code(s): J45.901 - Unspecified asthma with ( acute) exacerbation Condition: Stable Disposition: HOME, SELF-CARE Instructions: Family Physicians / Practices Additional Instructions: ASTHMA: You have been diagnosed as having asthma. This is a condition where there is episodic tightness in the bronchial tubes. Allergies, infections, and polluted or cold air may be contributing factors. Emergency treatment of a severe asthma attack may include adrenaline shots , or bronchodilator aerosol. You may feel lightheaded, have a decreased exercise tolerance and a rapid pulse for an hour or two. Rest and get plenty of fluids. Home treatment of asthma requires bronchodilator drugs. These can be administered by injection, inhalation, or by mouth. Antibiotics and corticosteroids may be required for some patients. You should avoid chemical fumes, dusts, pollens, and exercising in very cold or dry air. If you smoke, stop!! If you develop a fever, increased wheezing, chest pain, or severe shortness of breath, you should contact the doctor immediately. STEROID MEDICATION: You have been given an injection of or oral medicine of the cortisone/ steroid class. This medication is used to control inflammation or allergy. Jaiden t is usually only given for a short period of time, until the acute process subsides. There are usually no side effects from short-term use of cortisone-like medications. Some persons feel an increased sense of well-being and are not sleepy at bedtime. Long-term use of cortisone medications is best avoided, unless required for a severe condition. If your condition does not remit, or relapses after the course of corticosteroid medication, you should consult your physician. INHALED BRONCHODILATORS: You have received treatment(s) of and/or prescription for an inhaled bronchodilator -- a medication which stimulates the airways in the lung to dilate. This improves the flow of air in asthma, bronchitis, and emphysema. These medicines have some similarity to adrenaline, and can cause similar side effects: shakiness, racing heart, and a sense of nervousness. These side effects decrease with time. Contact your doctor if these side effects are severe. Do not over-use the medicine. Too-frequent use of the inhaler may make it ineffective. Call your doctor if the inhaler is not controlling your symptoms at the prescribed doses. SMOKING: If you smoke, you should stop smoking. The tar and chemicals in cigarette smoke are harmful. Smoking has been shown to cause: emphysema chronic bronchitis lung cancer mouth and throat cancer stomach and pancreas cancer premature aging defects In addition, smoking increases ear and lung infections in children of smokers. USE OF ACETAMINOPHEN (Tylenol): Acetaminophen may be taken for pain relief or fever control. It's much safer than aspirin, offering a wider range of "safe" dosages. It is safe during . Some brand names are Tylenol, Panadol, Datril, Anacin 3, Tempra, and Liquiprin. Acetaminophen can be repeated every four hours. The following are maximum recommended dosages: WEIGHT Dose Drops Elixir Chewable( 80mg) (LBS.) drprs=droppers tsp=teaspoon 6 40 mg 0.4 ml (1/2) 6-11 80 mg 0.8 ml (full) tsp 1 tab 12-16 120 mg 1 1/2 drprs 3/4 tsp 1 1/2 tabs 17-23 160 mg 2 drprs 1 tsp 2 tabs 24-30 240 mg 3 drprs 1 1/2 tsp 3 tabs 30-35 320 mg 2 tsp 4 tabs 36-41 360 mg 2 1/4 tsp 4 1/2 tabs 42-47 400 mg 2 1/2 tsp 5 tabs 48-53 480 mg 3 tsp 6 tabs 54-59 520 mg 3 1/4 tsp 6 1/2 tabs 60-64 560 mg 3 1/2 tsp 7 tabs 65-70 600 mg 3 3/4 tsp 7 1/2 tabs 71-76 640 mg 4 tsp 8 tabs 77-82 720 mg 4 1/2 tsp 9 tabs 83-88 800 mg 5 tsp 10 tabs >89 pounds or adults 650 mg to 900 mg Acetaminophen can be repeated every four hours. Maximum dose not to exceed 4000 mg a day. These maximum recommended dosages are slightly higher than the dosages written on the product container, but these dosages are very safe and below the toxic dosage for acetaminophen. FOLLOW-UP CARE: If you have been referred to a physician for follow-up care, call the physician s office for an appointment as you were instructed or within the next two days. If you experience worsening or a significant change in your symptoms, notify the physician immediately or return to the Emergency Department at any time for re-evaluation. Prescriptions: Albuterol Sulfate [Proair HFA Inhalation Aerosol 8.5 gm MDI] 2 puff IH Q4H PRN # 1 mdi PRN Reason: Forms: Smoking Cessation Education
[2018-02-06] MEDS: ALBUTEROL SULFATE 0.083% NEB 2.5 MG/3 ML AMPUL NEB SCH (11:50)
== END 2018-02-06 12:35 | disposition home or self-care (01) ==
LOC: ER 11:00
DX: J45.901 Unspecified asthma with (acute) exacerbation (principal); Z77.120 Contact with and (suspected) exposure to mold (toxic); R06.02 Shortness of breath; R05 Cough; R09.82 Postnasal drip; J34.89 Other specified disorders of nose and nasal sinuses; Z91.048 Other nonmedicinal substance allergy status; Z88.0 Allergy status to penicillin
CPT/HCPCS: 94640 ×2; 99284; 96372; J1100; J7620

== ENCOUNTER 2018-03-31 12:52 | Emergency (ER) | payer MEDICAID ==
[2018-03-31 12:57] VITALS: BP 128/70
== END 2018-03-31 14:47 | disposition left against medical advice (07) ==
LOC: ER 12:52
DX: Z53.21 Procedure and treatment not carried out due to patient leaving prior to being seen by health care provider (principal)

== ENCOUNTER 2018-04-13 22:59 | Emergency (ER) | payer MEDICAID ==
[2018-04-13] MEDS ORDERED: PREDNISONE 20 MG TABLET PO ONE (23:15)
[2018-04-13] MEDS ORDERED: IPRATROPIUM/ALBUTEROL 0.5-2.5 MG/3 ML AMPUL NEB ONE (23:15)
[2018-04-13 23:18] VITALS: BP 122/62
--- NOTE | 2018-04-13 23:38 | RADIOLOGY REPORT (SQ) ---
EXAM DESCRIPTION: XR CHEST 1 VIEW COMPLETED DATE/TME: 04/13/2018 23:16 CLINICAL HISTORY: difficulty breathing COMPARISON: 12/04/2015 FINDINGS: Single frontal view of the chest. The cardiomediastinal silhouette has normal size and contour. No consolidation, pneumothorax, or pleural effusion. No displaced rib fractures identified. Upper abdominal soft tissues are unremarkable. IMPRESSION: 1. No acute pulmonary process identified.
[2018-04-14] MEDS: ALBUTEROL SULFATE 0.083% NEB 2.5 MG/3 ML AMPUL NEB SCH ×2 (00:13→00:41)
--- NOTE | 2018-04-14 01:04 | ER Document Report ---
ED General - General Chief Complaint: Shortness Of Breath Stated Complaint: DIFFICULTY BREATHING Time Seen by Provider: 04/14/18 00:14 Information source: Patient Notes: Patient is a 27-year-old female who presents to the emergency department with a chief complaint of shortness of breath. She states she started to have shortness of breath this afternoon. She has a history of asthma and she states it is acting up due to the mold in her apartment. She is also complaining of tightness of her chest. She normally takes an albuterol inhaler, but she states she ran out. She has not seen a primary care doctor for this issue. Denies fever. She states she has allergies and they have gotten worse since she moved here from [place]. TRAVEL OUTSIDE OF THE [place] IN LAST 30 DAYS: No - Related Data Allergies/Adverse Reactions: dog dander Allergy (Verified 02/06/18 11:02) Penicillins Allergy (Verified 02/06/18 11:02) Past Medical History - General Information source: Patient - Social History Smoking Status: Never Smoker Chew tobacco use (# tins/day): No Frequency of alcohol use: None Drug Abuse: None Family History: Reviewed & Not Pertinent Patient has suicidal ideation: No Patient has homicidal ideation: No Pulmonary Medical History: Reports: Hx Asthma Renal/ Medical History: Denies: Hx Peritoneal Dialysis Past Surgical History: Reports: Hx Tubal Ligation - Immunizations Immunizations up to date: Yes Review of Systems - Review of Systems Notes: REVIEW OF SYSTEMS: CONSTITUTIONAL : Denies recent illness. Denies recent unintentional weight loss. Denies fever, chills, or sweats. EENT: Denies eye, ear, throat, or mouth pain, discharge, or symptoms. Denies nasal or sinus congestion. CARDIOVASCULAR: Denies chest pain. RESPIRATORY: See HPI GASTROINTESTINAL: Denies nausea, vomiting, and diarrhea. Denies abdominal pain. Denies constipation. GENITOURINARY: Denies difficulty urinating, burning, blood in urine, urgency or frequency. MUSCULOSKELETAL: Denies neck and back pain. Denies joint pain or swelling. SKIN: Denies rash, itchiness, or lesions HEMATOLOGIC : Denies easy bruising or bleeding. LYMPHATIC: Denies swollen, painful, enlarged glands. NEUROLOGICAL: Denies no numbness or tingling denies weakness. Denies headache. Denies altered mental status. Denies alteration in speech. PSYCHIATRIC: Denies stress, anxiety, alteration in sleep patterns, or depression. All other systems reviewed and negative. Physical Exam - Vital signs Vitals: Temp Pulse Resp BP Pulse Ox 98.1 F 89 16 122/62 98 04/13/18 23:14 04/13/18 23:14 04/13/18 23:14 04/13/18 23:14 04/13/18 23:14 - Notes Notes: PHYSICAL EXAMINATION: GENERAL: Appears well, healthy, well-nourished, no acute distress. HEAD: Normocephalic, atraumatic. EYES: PERRL, conjunctiva normal, all extraocular movements intact, sclera nonicteric ENT: Moist mucous membranes. NECK: Supple, no noticeable swelling, redness, rash. Normal range of motion. LUNGS: Equal breath sounds bilaterally and clear to auscultation. Expiratory wheezes. CARDIOVASCULAR: S1-S2, regular rate, regular rhythm. Radial pulses 2+, normal. ABDOMEN: Normoactive bowel sounds. Soft, nontender, no guarding, no rebound tenderness, and no masses palpated. EXTREMITIES: Normal strength and range of motion, no pitting or edema. No cyanosis. NEUROLOGICAL: Moves all extremities upon command. Strength 5/5 in all extremities. PSYCH: Normal mood, normal affect. SKIN: Warm, dry. No rash, lesions, ulcerations noted. Normal skin turgor. Course - Re-evaluation Re-evalutation: Upon my assessment, patient was already receiving an albuterol treatment and was almost done with the treatment. I did not notice mild expiratory wheezes. After her treatment, she was reassessed and her lung sounds were clear. Had a discussion with her about establishing a primary care doctor. She states she will see a primary care doctor this week. Verbal discharge instructions were given to the patient. She verbalized understanding and is stable for discharge. - Vital Signs Vital signs: Temp Pulse Resp BP Pulse Ox 98.1 F 89 20 122/62 98 04/14/18 01:31 04/13/18 23:14 04/14/18 01:31 04/13/18 23:14 04/14/18 01:31 Discharge - Discharge Clinical Impression: Shortness of breath, Environmental allergies Asthma Qualifiers: Asthma severity: mild Asthma persistence: unspecified Asthma complication type : with acute exacerbation Qualified Code(s): J45.901 - Unspecified asthma with ( acute) exacerbation Condition: Good Disposition: HOME, SELF-CARE Additional Instructions: You have been seen in the emergency department for shortness of breath. You have been given an albuterol inhaler to use as needed for wheezing. You have also been prescribed steroids to help with your breathing. Please take this medication as prescribed. You may take Singulair, the prescription you have been given for your allergies. If you decide not to use the Singulair, you may take [id number] cetirizine for your allergies. Follow-up with a primary care doctor. If you develop a fever greater than 100.4 F, develop shortness of breath again, or have any symptoms that are worrisome to you, please return to the emergency department. Prescriptions: Montelukast Sodium [Singulair 10 mg Tablet] 10 mg PO QHS #30 tablet Prednisone [Deltasone 20 mg Tablet] 3 tab PO DAILY 5 Days tablet
[2018-04-14] MEDS ORDERED: ALBUTEROL SULFATE HFA (90 MCG/PUFF) 8 GM MDI (1 MDI/ER DISP) IH ONE (01:06)
== END 2018-04-14 01:33 | disposition home or self-care (01) ==
LOC: ER 22:59
DX: J45.901 Unspecified asthma with (acute) exacerbation (principal); R06.02 Shortness of breath; T78.40XA Allergy, unspecified, initial encounter
CPT/HCPCS: 94640 ×2; 99284; 71045; J7512; J3490; J7620

== ENCOUNTER 2019-06-03 12:40 | Emergency (ER) | payer BC, MEDICAID ==
[2019-06-03] MEDS ORDERED: ALBUTEROL SULFATE 0.083% NEB 2.5 MG/3 ML AMPUL NEB ONE (13:23)
[2019-06-03] MEDS ORDERED: IBUPROFEN 600 MG TABLET PO ONE (13:26)
[2019-06-03] MEDS ORDERED: ONDANSETRON 4 MG TAB.RAPDIS PO ONE (13:27)
--- NOTE | 2019-06-03 14:07 | RADIOLOGY REPORT (SQ) ---
EXAM DESCRIPTION: CHEST 2 VIEWS COMPLETED DATE/TIME: 06/03/2019 1:45 pm REASON FOR STUDY: chest congestion, fever, back pain COMPARISON: 04/13/2018 EXAM PARAMETERS: NUMBER OF VIEWS: two views TECHNIQUE: Digital Frontal and Lateral radiographic views of the chest acquired. RADIATION DOSE: NA LIMITATIONS: none FINDINGS: LUNGS AND PLEURA: No opacities, masses or pneumothorax. No pleural effusion. MEDIASTINUM AND HILAR STRUCTURES: No masses or contour abnormalities. HEART AND VASCULAR STRUCTURES: Heart normal size. No evidence for failure. BONES: No acute findings. HARDWARE: None in the chest. OTHER: No other significant finding. IMPRESSION: NO ACUTE RADIOGRAPHIC FINDING IN THE CHEST. TECHNICAL DOCUMENTATION: JOB ID: [id number] [employer]- All Rights Reserved Reading location - IP/workstation name: [email or web address]
--- NOTE | 2019-06-03 14:31 | ER Document Report ---
ED Flu Like - General Chief Complaint: Flu Symptoms Stated Complaint: FLU LIKE SYMPTOMS Time Seen by Provider: 06/03/19 13:23 Primary Care Provider: [facility] [Provider Group] - Follow up in 1 week TRAVEL OUTSIDE OF THE [place] IN LAST 30 DAYS: No - HPI Notes: 28-year-old female to the emergency department with children with complaints of sore throat that began about 2 weeks ago and got briefly better over the weekend but then she began to have fevers, chills, body aches, cough, nasal congestion. She states she has asthma and she feels like her chest is tight and her asthma is acting up. She states that she has been taking Tylenol Motrin without a lot of relief. She states that she ran out of her albuterol inhaler. She states her children are sick with the same. - Related Data Allergies/Adverse Reactions: dog dander Allergy (Verified 06/03/19 13:17) Penicillins Allergy (Verified 06/03/19 13:17) Past Medical History - General Information source: Patient - Social History Smoking Status: Never Smoker Chew tobacco use (# tins/day): No Frequency of alcohol use: Occasional Drug Abuse: None Lives with: Family Family History: Reviewed & Not Pertinent Patient has suicidal ideation: No Patient has homicidal ideation: No Pulmonary Medical History: Reports: Hx Asthma Renal/ Medical History: Denies: Hx Peritoneal Dialysis Past Surgical History: Reports: Hx Tubal Ligation - Immunizations Immunizations up to date: Yes Review of Systems - Review of Systems Constitutional: Chills, Fever EENT: Throat pain Cardiovascular: denies: Chest pain, Palpitations, Dizziness, Lightheaded Respiratory: Cough, Hurts to breathe, Short of breath Gastrointestinal: Diarrhea, Nausea, Vomiting. denies: Abdominal pain Genitourinary: No symptoms reported Female Genitourinary: No symptoms reported Musculoskeletal: Muscle pain - Body aches Skin: No symptoms reported Hematologic/Lymphatic: No symptoms reported Neurological/Psychological: No symptoms reported -: Yes All other systems reviewed and negative Physical Exam - Vital signs Vitals: Temp Pulse Resp BP Pulse Ox 99.9 F 110 H 16 138/86 H 94 06/03/19 12:47 06/03/19 12:47 06/03/19 12:47 06/03/19 12:47 06/03/19 12:47 Interpretation: Tachycardic - General General appearance: Appears well, Alert In distress: None - HEENT Head: Normocephalic, Atraumatic Eyes: Normal Pupils: PERRL Ears: Normal External canal: Normal Tympanic membrane: Normal Sinus: Normal Nasal: Normal Mouth/Lips: Normal. No: Angioedema Mucous membranes: Normal Pharynx: Erythema, Other - No Aristeo's angina. No: Exudate, Peritonsillar abscess, Post nasal drainage, Retropharyngeal abscess, Tonsillar hypertrophy, Uvular edema, Potential airway comprom. Neck: Normal, Supple. No: Lymphadenopathy, Meningismus - Respiratory Respiratory status: No respiratory distress Chest status: Nontender Breath sounds: Productive cough. No: Rales, Rhonchi, Stridor, Wheezing Chest palpation: Normal - Cardiovascular Rhythm: Regular Heart sounds: Normal auscultation Murmur: No - Abdominal Inspection: Normal Distension: No distension Bowel sounds: Normal Tenderness: Nontender. No: Tender, McBurney's point, Valero's sign, Guarding, Rebound Organomegaly: No organomegaly - Back Back: Normal, Nontender - Neurological Neuro grossly intact: Yes Cognition: Normal Orientation: AAOx4 Carnegie Coma Scale Eye Opening: Spontaneous Carnegie Coma Scale Verbal: Oriented Carnegie Coma Scale Motor: Obeys Commands Wilder Coma Scale Total: 15 Speech: Normal Cranial nerves: Normal. No: Facial palsy, Forehead sparing, Gaze palsy, Sensory deficit, Tongue deviation Cerebellar coordination: Normal. No: Gait ataxia Motor strength normal: LUE, RUE, LLE, RLE Additional motor exam normals: Equal instructor of spanish. No: Pronator drift Sensory: Normal - Psychological Associated symptoms: Normal affect, Normal mood - Skin Skin Temperature: Warm Skin Moisture: Dry Skin Color: Normal Course - Re-evaluation Re-evalutation: 06/05/19 Impression: Flulike syndrome, cough, body aches. Will send home with symptomatic relief. Chest x-ray is negative. Strep is negative. Gave return precautions. Encouraged to follow-up with primary care - Vital Signs Vital signs: Temp Pulse Resp BP Pulse Ox 98.1 F 100 16 115/71 97 06/03/19 15:04 06/03/19 15:04 06/03/19 15:04 06/03/19 15:04 06/03/19 15:04 - Diagnostic Test Radiology reviewed: Image reviewed, Reports reviewed Discharge - Discharge Clinical Impression: Flu-like symptoms, Cough, Generalized body aches, Sore throat Condition: Stable Disposition: HOME, SELF-CARE Instructions: Influenza ([facility]) Additional Instructions: PUSH FLUIDS. TAKE TYLENOL AND MOTRIN. COMPLETE STEROIDS. REST AT HOME. FOLLOW UP WITH PRIMARY CARE. Prescriptions: Albuterol Sulfate [Albuterol Sulfate Hfa] 1 puff IH Q4H #1 hfa.aer.ad Prednisone [Deltasone 10 mg Tablet] 10 mg PO ASDIR PRN #21 tablet PRN Reason: Ibuprofen [Motrin 800 mg Tablet] 800 mg PO Q8H PRN #30 tab PRN Reason: Promethazine/Dextromethorphan [Promethazine-Dm Syrup] 5 ml PO QID #120 ml Ondansetron [Zofran Odt 4 mg Tablet] 1 - 2 tab PO Q4H PRN #15 tab.rapdis PRN Reason: For Nausea/Vomiting Forms: Return to Work Referrals: [facility] [Provider Group] - Follow up in 1 week
[2019-06-03 15:08] VITALS: BP 115/71
== END 2019-06-03 15:04 | disposition home or self-care (01) ==
LOC: ER 12:40
DX: J02.9 Acute pharyngitis, unspecified (principal); R50.9 Fever, unspecified; R05 Cough; M79.10 Myalgia, unspecified site; Z88.0 Allergy status to penicillin; Z98.51 Tubal ligation status
CPT/HCPCS: 94640; 99283; 87070; 87880; 71046; S0119

== ENCOUNTER 2019-11-03 14:14 | Emergency (ER) | payer MEDICAID ==
[2019-11-03 15:02] VITALS: BP 118/91
== END 2019-11-03 16:42 | disposition left against medical advice (07) ==
LOC: ER 14:14
DX: Z53.21 Procedure and treatment not carried out due to patient leaving prior to being seen by health care provider (principal)

== ENCOUNTER → 2020-02-28 | Outpatient (CLI) | payer MEDICAID ==
[~2020-02-28] MED LIST: PROPOFOL INJ 200 MG/20 ML VIAL IV ONE
== END ==
LOC: OD 14:25 → EDSTATUS 03-10 13:00
PROVIDERS: ATTEND Internal Medicine Gastroenterology
DX: Z03.818 Encounter for observation for suspected exposure to other biological agents ruled out (principal)
CPT/HCPCS: 87635; C9803; J2704

== ENCOUNTER 2020-04-08 03:34 | Emergency (ER) | payer MEDICAID ==
--- NOTE | 2020-04-08 05:10 | ER Document Report ---
ED General - General Chief Complaint: Shortness Of Breath Stated Complaint: SORE THROAT,HEADACHE,FEVER,DIFFICULTY BREATHING Time Seen by Provider: 04/08/20 04:59 Primary Care Provider: ROB LANIER NP [Primary Care Provider] - Follow up in 3-5 days TRAVEL OUTSIDE OF THE [place] IN LAST 30 DAYS: No - HPI Notes: 29-year-old female with past medical history for asthma to the emergency department with complaints of 1 week of cough, sore throat, headache, shortness of breath. She states she saw her primary care earlier today and was prescribed albuterol and steroids. She states that she took albuterol at home and her first dose of steroids. She states that the albuterol at home did help some. She states that however tonight she started to cough and she had some productive white sputum and she got concerned. She states currently she feels just mildly short of breath. She denies any fevers. She denies any known contacts to COVID-19. However, she did go to a friend's house for Thanksgiving. She does have a past medical history significant for hospitalization for her asthma and intubation remotely. She does not smoke. The patient was evaluated during the global COVID 19 pandemic, and that diagnosis was suspected/considered upon their initial presentation. Their evaluation, treatment, and testing was consistent with current guidelines for patients who present with complaints or symptoms that may be related to COVID-19. - Related Data Allergies/Adverse Reactions: dog dander Allergy (Verified 04/08/20 04:00) Penicillins Allergy (Verified 04/08/20 04:00) Past Medical History - General Information source: Patient - Social History Smoking Status: Former Smoker Frequency of alcohol use: Occasional Drug Abuse: None Family History: Reviewed & Not Pertinent Patient has homicidal ideation: No - Past Medical History Cardiac Medical History: Denies: Hx Coronary Artery Disease, Hx Heart Attack, Hx Hypertension Pulmonary Medical History: Reports: Hx Asthma Denies: Hx Bronchitis, Hx COPD, Hx Pneumonia Neurological Medical History: Denies: Hx Cerebrovascular Accident, Hx Seizures Renal/ Medical History: Denies: Hx Peritoneal Dialysis Musculoskeletal Medical History: Denies Hx Arthritis Past Surgical History: Reports: Hx Tubal Ligation - Immunizations Immunizations up to date: Yes Hx Diphtheria, Pertussis, Tetanus Vaccination: No Review of Systems - Review of Systems Constitutional: denies: Chills, Fever EENT: Throat pain Cardiovascular: denies: Chest pain, Palpitations, Heart racing, Orthopnea, Syncope, Dizziness, Lightheaded, Edema Respiratory: Cough, Short of breath, Wheezing Gastrointestinal: denies: Abdominal pain, Diarrhea, Nausea, Vomiting Genitourinary: No symptoms reported Female Genitourinary: No symptoms reported Musculoskeletal: No symptoms reported Skin: No symptoms reported Hematologic/Lymphatic: No symptoms reported Neurological/Psychological: See HPI, Headaches -: Yes All other systems reviewed and negative Physical Exam - Vital signs Vitals: Temp Pulse Resp BP Pulse Ox 98.0 F 89 20 132/73 H 97 04/08/20 03:43 04/08/20 03:43 04/08/20 03:43 04/08/20 03:43 04/08/20 03:43 Interpretation: Normal - Notes Notes: PHYSICAL EXAMINATION: GENERAL: Well-appearing, well-nourished and in no acute distress. HEAD: Atraumatic, normocephalic. EYES: Pupils equal round and reactive to light, extraocular movements intact, sclera anicteric, conjunctiva are normal. ENT: nares patent, oropharynx clear without exudates. Moist mucous membranes. TMs clear bilaterally NECK: Normal range of motion, supple without lymphadenopathy LUNGS: decreased breath sounds throughout but without wheezes, rales, or rhonchi. No respiratory distress, no accessory muscle use. HEART: Regular rate and rhythm without murmurs ABDOMEN: Soft, nontender, normoactive bowel sounds. No guarding, no rebound. No masses appreciated. EXTREMITIES: Normal range of motion, no pitting or edema. No cyanosis. NEUROLOGICAL: No focal neurological deficits. Moves all extremities spontaneously and on command. PSYCH: Normal mood, normal affect. SKIN: Warm, Dry, normal turgor, no rashes or lesions noted. Course - Re-evaluation Re-evalutation: 04/08/20 06:08 Round on the patient and she is feeling much better after breathing treatment. Repeat auscultation illustrates better air movement and consistently no wheezing. She has a negative chest x-ray. Her influenza and rapid strep are negative. Covid is pending. We will plan on having her continue the albuterol inhaler plus steroids at home that her primary care wrote for her and I will add cough medicine to her regimen. She is encouraged to return immediately if she is worse. Patient agrees with the plan. As a person under investigation for COVID-19, [facility], division of public health advises you to adhere to the following guidance until your test results are reported to you. If your t est result is positive, you will receive additional information from your provider and your local health department at that time. Remain at home until you are cleared by the healthcare provider public health authorities. Keep a log of visitors to your home and notify any visitors to your home of your isolation status. If you plan to move to a new address or leave the country, notify the local [facility] department and your County. Call your doctor or seek care if you have an urgent medical need. Before seeking medical care, call ahead to get instructions from the provider before arriving at the medical office, clinic, or hospital. Notify them that you are being tested for the virus that causes COVID-19 so that arrangements can be made, as necessary, to prevent transmission to others in the healthcare setting. Next, notify the local health department and your County. If a medical emergency arises and you need to call 911, informed the first responders that you are being tested for the virus that causes COVID-19. Next, notified the [facility] department and your County. - Vital Signs Vital signs: Temp Pulse Resp BP Pulse Ox 98.0 F 89 20 132/73 H 97 04/08/20 03:43 04/08/20 03:43 04/08/20 03:43 04/08/20 03:43 04/08/20 03:43 - Diagnostic Test Radiology reviewed: Image reviewed, Reports reviewed Discharge - Discharge Clinical Impression: Viral upper respiratory illness, Encounter for screening laboratory testing for COVID-19 virus Asthma Qualifiers: Asthma severity: mild Asthma persistence: unspecified Asthma complication type: with acute exacerbation Qualified Code(s): J45.901 - Unspecified asthma with (acute) exacerbation Condition: Stable Disposition: HOME, SELF-CARE Instructions: COVID-19 Guidance for Persons Under Investigation, Upper Respiratory Illness ([facility]) Additional Instructions: Take medicine as prescribed. Use the inhaler prescribed to you by primary care as well is taking the steroids. Also been written for cough medicine tonight. Please quarantine until you have the results of COVID-19. Return if you have worsening symptoms such as worsening shortness of breath, intractable nausea vomiting, chest pain, or any other concerns. As a person under investigation for COVID-19, [facility], division of public health advises you to adhere to the following guidance until your test results are reported to you. If your test result is positive, you will receive additional information from your provider and your local health department at that time. Remain at home until you are cleared by the healthcare provider public health authorities. Keep a log of visitors to your home and notify any visitors to your home of your isolation status. If you plan to move to a new address or leave the country, notify the local health department and your County. Call your doctor or seek care if you have an urgent medical need. Before seeking medical care, call ahead to get instructions from the provider before arriving at the medical office, clinic, or hospital. Notify them that you are being tested for the virus that causes COVID-19 so that arrangements can be made, as necessary, to prevent transmission to others in the healthcare setting. Next, notify the local health department and your County. If a medical emergency arises and you need to call 911, informed the first responders that you are being tested for the virus that causes COVID-19. Next, notified the local health department and your County. Prescriptions: Promethazine/Dextromethorphan [Promethazine-Dm Syrup] 5 ml PO Q8H #118 ml Forms: Return to Work Referrals: ROB LANIER NP [Primary Care Provider] - Follow up in 3-5 days
--- NOTE | 2020-04-08 05:16 | RADIOLOGY REPORT (SQ) ---
CLINICAL HISTORY: hx asthma; productive cough, shortness of breath COMPARISON: 04/13/2018. TECHNIQUE: XR CHEST 2 VIEWS 04/08/2020 12:00 AM PARTS REMOVER FINDINGS: Cardiac silhouette is normal in size. Lungs are clear without consolidation, atelectasis, mass or edema. There is no pleural effusion. There is no pneumothorax. There are no acute osseous findings. IMPRESSION: Clear lungs.
[2020-04-08] MEDS ORDERED: IPRATROPIUM/ALBUTEROL 0.5-2.5 MG/3 ML AMPUL NEB ONE (05:17)
[2020-04-08] MEDS ORDERED: GUAIFENESIN SYRP 200 MG/10 ML UDC PO ONE (05:17)
[2020-04-08 05:23] LABS: A TYPE INFLUENZA AG NEGATIVE (NEGATIVE); B INFLUENZA AG NEGATIVE (NEGATIVE)
[2020-04-08 06:10] VITALS: BP 124/69
--- NOTE | 2020-04-08 07:20 | EKG REPORT ---
SEVERITY:- NORMAL ECG - SINUS RHYTHM : Confirmed by: Weston Gregg MD 08-Apr-2020 07:19:56
== END 2020-04-08 06:10 | disposition home or self-care (01) ==
LOC: ER 03:34
DX: J45.901 Unspecified asthma with (acute) exacerbation (principal); J06.9 Acute upper respiratory infection, unspecified; B97.89 Other viral agents as the cause of diseases classified elsewhere; J02.9 Acute pharyngitis, unspecified; R05 Cough; R06.02 Shortness of breath; R51.9 Headache, unspecified; Z88.0 Allergy status to penicillin; Z91.048 Other nonmedicinal substance allergy status; Z87.891 Personal history of nicotine dependence; Z20.828 Contact with and (suspected) exposure to other viral communicable diseases
CPT/HCPCS: 93005; 94640; 99285; 87070; 87880; 87635; 87077; 87804; 71046; 93010; J3490; C9803

== ENCOUNTER 2020-06-01 08:40 | Day surgery (SDC) | payer MEDICAID ==
--- NOTE | 2020-06-01 10:07 | Operative Report ---
Operative Report DATE OF SURGERY: 06/01/20 Operative Report: The risk, benefits and alternatives of the procedure including the risk of bleeding, perforation requiring surgery have been explained to the patient in detail and informed consent has been obtained. Patient is placed in the left, lateral decubital position. Timeout was called. Propofol medication is administered. Rectal examination is done which did not reveal any masses, tears or fissures. An Olympus videoscope was introduced into the patient's rectum. Scope was then carefully advanced all the way to the cecum. Cecum was identified by the usual anatomical landmarks including the ileocecal valve as well as the appendiceal office. Photodocumentation is obtained. Scope was then sequentially pulled back via the various segments of the colon including the ascending colon, hepatic flexure, transverse colon, splenic flexure, descending colon and finally in to the rectosigmoid portions of the colon. Retroflexion maneuver is performed. The risks benefits and alternatives of the procedure explained to the patient in detail and informed consent is obtained.A GIF Olympus video scope was inserted into the patient's mouth and hypopharynx ,the esophagus is identified intubated and insufflated, the scope was then advanced through the esophagus stomach and duodenum, retroflexion maneuver is done ,the esophagus stomach and first and second portions of the duodenum examined PREOPERATIVE DIAGNOSIS: Change of bowel habits. Epigastric pain POSTOPERATIVE DIAGNOSIS: Terminal ileitis status post biopsy. Internal hemorrhoids. Gastritis status post biopsy OPERATION: Colonoscopy with biopsy. EGD with biopsy SURGEON: SHARON MAXWELL ANESTHESIA: LMAC TISSUE REMOVED OR ALTERED: As noted above. COMPLICATIONS: None. ESTIMATED BLOOD LOSS: None. INTRAOPERATIVE FINDINGS: As noted above. PROCEDURE: Patient tolerated the procedure well. No immediate postprocedure complications are noted. Patient is discharged in good condition. Discharge date 06/01/2020. Discharge diet: Regular. Discharge activity: Regular. 2 to 3-week follow-up to discuss findings. Patient is instructed call the office or proceed to the emergency room should there be any further palpitations. Wait on the pathology.
[2020-06-01 10:38] VITALS: BP 105/44
== END 2020-06-01 10:43 | disposition home or self-care (01) ==
LOC: END 08:40
PROVIDERS: ATTEND Internal Medicine Gastroenterology
DX: K29.50 Unspecified chronic gastritis without bleeding (principal); K50.00 Crohn's disease of small intestine without complications; K64.8 Other hemorrhoids; E66.9 Obesity, unspecified; K59.00 Constipation, unspecified; Z98.51 Tubal ligation status; Z68.38 Body mass index [BMI] 38.0-38.9, adult
CPT/HCPCS: 43239; 45380; 88305; 88342; J2704